=== PATIENT | female | born 1945 | race Caucasian/White ===

== ENCOUNTER → 2017-07-22 | Outpatient (CLI) | payer OTHER | LOC: M.RAD 08:07 | DX: Z12.31 Encounter for screening mammogram for malignant neoplasm of breast (principal) ==

== ENCOUNTER → 2017-11-16 | Outpatient (CLI) | payer OTHER ==
[2017-11-16 11:29] LABS: ABSOLUTE BASOPHILS 0.1 thou/uL (0.0-0.2); ABSOLUTE EOSINOPHILS 0.1 thou/uL (0.0-0.7); ABSOLUTE LYMPHOCYTES 1.6 thou/uL (0.8-5.3); ABSOLUTE MONOCYTES 0.6 thou/uL (0.0-1.2); ABSOLUTE NEUTROPHILS 5.7 thou/uL (1.6-8.1); BASOPHILS 0.7 %; EOSINOPHILS 0.9 %; HEMOGLOBIN 13.9 gm/dL (12.0-15.0); LYMPHOCYTES 19.5 %; MCHC 33.9 g/dL (28.0-37.0); MCV 88.5 fL (80.0-100.0); MONOCYTES 7.3 %; MPV 9.1 fl. (7.2-11.1); NUCLEATED RBCS 0 /100WBC; PLATELET COUNT* 253 thou/uL (150-400); POLYS 71.6 %; RBC 4.64 mil/uL (4.20-5.00); RDW-CV 13.6 % (10.5-14.5)
[2017-11-16 11:57] LABS: ALKALINE PHOSPHATASE 74 U/L (46-116); ANION GAP 11 mmol/L (7-16); BUN 17 mg/dL (7-18); CALCIUM 9.2 mg/dL (8.5-10.1); CHLORIDE 100 mmol/L (98-107); CHOLESTEROL 120 mg/dL (<200); CO2 24 mmol/L (21-32); CREATININE 0.8 mg/dL (0.6-1.3); GLUCOSE 121 mg/dL (70-99); HDL CHOLESTEROL 45 mg/dL (>40); LDL CHOLESTEROL 49 mg/dL (<100); MAGNESIUM 2.1 mg/dL (1.8-2.4); SERUM ASSESSMENT Clear; SGOT 28 U/L (15-37); SGPT 43 U/L (30-65); SODIUM 135 mmol/L (136-145); TC:HDL 2.7 Ratio (Not establshd); TOTAL BILIRUBIN 0.4 mg/dL (<0.1-1.0); TOTAL PROTEIN 8.2 g/dL (6.4-8.2); TRIGLYCERIDE 132 mg/dL (<150); VLDL 26 mg/dL (<40)
== END ==
LOC: M.LAB 11:03
PROVIDERS: Registered Nurse
DX: E78.1 Pure hyperglyceridemia (principal); R19.7 Diarrhea, unspecified; R53.81 Other malaise; R53.83 Other fatigue

== ENCOUNTER → 2018-07-28 | Outpatient (CLI) | payer OTHER | LOC: M.RAD 08:05 | DX: Z12.31 Encounter for screening mammogram for malignant neoplasm of breast (principal) ==

== ENCOUNTER → 2019-08-12 | Outpatient (CLI) | payer OTHER | LOC: M.RAD 11:00 | DX: Z12.31 Encounter for screening mammogram for malignant neoplasm of breast (principal) ==

== ENCOUNTER → 2020-08-15 | Outpatient (CLI) | payer OTHER | LOC: M.RAD 10:12 | PROVIDERS: ATTEND Nurse Practitioner Family | DX: Z12.31 Encounter for screening mammogram for malignant neoplasm of breast (principal); N64.89 Other specified disorders of breast ==